=== PATIENT | female | born 1940 | race Caucasian/White ===

== ENCOUNTER → 2017-10-04 | Outpatient (CLI) | payer OTHER, MEDICARE ==
[~2017-10-04] MED LIST: CALC-20 PO; PRED1SUS3 OPL; PRLSR20 PO; RSTOPS OP; [UNRECOGNIZED DRUG - CODE] PO
--- NOTE | 2017-10-05 07:48 | MAMMOGRAPHY REPORT ---
BILATERAL DIGITAL SCREENING MAMMOGRAM TOMOSYNTHESIS WITH CAD: 10/04/2017 CLINICAL HISTORY: Routine screening. Patient has no complaints. TECHNIQUE: Breast tomosynthesis in addition to standard 2D mammography was performed. Current study was also evaluated with a Computer Aided Detection (CAD) system. COMPARISON: Comparison is made to exams dated: 10/01/2016 mammogram, 09/30/2015 mammogram, 09/28/2014 m ammogram, 09/11/2013 mammogram, 09/05/2012 mammogram, and 09/04/2011 mammogram - [facility]. BREAST COMPOSITION: There are scattered areas of fibroglandular density in both breasts. FINDINGS: There is a benign rim calcification in the left breast. No suspicious spiculated or irregu lar mass, architectural distortion or cluster of new, suspicious microcalcifications is seen. IMPRESSION: ACR BI-RADS CATEGORY 1: NEGATIVE There is no mammographic evidence of malignancy. A 1 year screening mammogram is recommended. The pa tient will receive written notification of the results. Approximately 10% of breast cancers are not detected with mammography. A negative mammographic report should not delay biopsy if a clinically suggestive mass is present. Debby Lara M.D. ay/:10/04/2017 20:54:31 Structurer: Magdalena ZAMORA(R)(M), [facility] letter sent: Normal 1/2 BI-RADS Code: ACR BI-RADS Category 1: Negative
== END | disposition home or self-care (01) ==
LOC: C.MAMM 13:56
PROVIDERS: ATTEND Family Medicine
DX: Z12.31 Encounter for screening mammogram for malignant neoplasm of breast (principal); Z85.3 Personal history of malignant neoplasm of breast

== ENCOUNTER 2018-02-06 08:03 | Emergency (ER) | payer OTHER, MEDICARE ==
[~2018-02-06] VITALS: Ht 160 cm; Wt 62.6 kg
[2018-02-06 08:05] VITALS: BP 129/73; PULSE 64; TEMP 36.3; O2SAT 98; Ht 160 cm; Wt 62.6 kg
--- NOTE | 2018-02-06 08:37 | EMERGENCY ROOM VISIT NOTE ---
History Report prepared by Rasheedaibe: Caryn Wheeler Under the Supervision of: Dr. Vishnu Howard D.O. First contact with patient: 08:26 Chief Complaint: BITE Stated Complaint: TICK BITE History of Present Illness The patient is a 77 year old female who presents to the Emergency Room with complaints of a tick bite that she noticed 2 days [employer]. She states last night, she checked the area on her left posterior shoulder more carefully, and showed her , who told her it looked like a tick bite with part of the tick still embedded. He used tweezers to attempt removal of the foreign body, but was unable to get the entire tick out. The patient denies any bulls-eye rash but notes the area is red. She has no other complaints at today's visit. Source of History: patient Onset: 2 days [employer] Position: shoulder (left) Quality: other (tick bite) Timing: constant Associated Symptoms: No rash Review of Systems See HPI for pertinent positives & negatives. A total of 10 systems reviewed and were otherwise negative. Past Medical & Surgical Medical Problems: (1) Diverticulosis Colon (W/O Ment Of Hemorrhage) (2) Esophageal Reflux (3) Hx Of Breast Malignancy (4) Liver Disorders Nec (5) Lump Or Mass In Breast (6) Reflux Esophagitis Family History Patient reports no known family medical history. Social History Smoking Status: Never Smoker Alcohol Use: occasionally Drug Use: none Marital Status: Housing Status: lives with significant other Occupation Status: retired Current/Historical Medications Scheduled Calcium Carbonate-Vitamin D (Calcium 600 + D), 1 TAB PO BID Cyclosporine (Restasis Eye Drops), 1 DROP OP BID Omeprazole (Prilosec), 20 MG PO BID Prednisolone Acetate 1% Oph (Pred Forte 1% Oph), 1 DROP OPL TID Scheduled PRN Eszopiclone (Lunesta), 2 MG PO HS PRN for Sleep Allergies Coded Allergies: Lactose Intolerance (Verified Allergy, Unknown, ., 04/17/15) Propoxyphene (Verified Adverse Reaction, Unknown, NAUSEA/VOMITING, 04/17/15 ) Physical Exam Vital Signs Date Time Temp Pulse Resp B/P (MAP) Pulse Ox O2 Delivery O2 Flow Rate FiO2 02/06/18 08:05 36.3 64 18 129/73 98 Room Air Physical Exam CONSTITUTIONAL/VITAL SIGNS: Reviewed / noted above. GENERAL: Non-toxic in appearance. INTEGUMENTARY: Warm, dry, and [place]. HEAD: Normocephalic. EYES: without scleral icterus or trauma. ENT/OROPHARYNX: clear and moist. LYMPHADENOPATHY/NECK: Is supple without lymphadenopathy or meningismus. RESPIRATORY: Lungs clear and equal. CARDIOVASCULAR: Regular rate and rhythm. GI/ABDOMEN: Soft and nontender. No organomegaly or pulsatile mass. No rebound or guarding. Normal bowel sounds. EXTREMITIES: Warm and well perfused. Tick bite to left posterior shoulder, mild erythema, small scab from home removal. BACK: No CVA tenderness. NEUROLOGICAL: Intact without focal deficits. PSYCHIATRIC: normal affect. MUSCULOSKELETAL: Normally developed with good muscle tone. Medical Decision & Procedures Medications Administered Medications (Trade) Dose Ordered Sig/Jay Route Start Time Stop Time Status Last Admin Dose Admin Doxycycline Hyclate (Vibramycin Cap) 200 mg ONE ONCE PO 02/06/18 08:45 02/06/18 08:46 DC 02/06/18 08:48 200 MG ED Course 0829: Previous medical records were reviewed. The patient was evaluated in room A2. A complete history and physical examination was performed. 0845: Vibramycin 200 mg PO. 0840: On reevaluation, the patient is feeling well and resting comfortably. I discussed the results and findings with the patient. She verbalized agreement of the treatment plan. She was discharged home. Medical Decision There is no signs of acute infection or erythema migrans. This is a 77-year-old female who presents to the ED with a chief complaint of a tick bite to the left posterior shoulder area. This was removed on Wednesday by her with tweezers. She was worried about Lyme disease. The patient has no other complaints. The area reveals some mild erythema surrounding the area of a scab where the tick was removed. No other findings. She was given doxycycline 200 mg p.o. She is felt to be stable for discharge. She was given instructions on Lyme disease. Medication Reconcilliation Current Medication List: was personally reviewed by me Blood Pressure Screening Patient's blood pressure: Normal blood pressure Blood pressure disposition: Did not require urgent referral Impression Primary Impression: Tick bite Scribe Attestation The scribe's documentation has been prepared under my direction and personally reviewed by me in its entirety. I confirm that the note above accurately reflects all work, treatment, procedures, and medical decision making performed by me. Departure Information Dispostion Home / Self-Care Referrals Екатерина Orta MD (PCP) Patient Instructions Disease Lyme Prevent, ED Lyme Disease, My [facility] Additional Instructions Watch the wound area for increasing redness. If this occurs contact your doctor or return for reevaluation. Read information provided on Lyme disease and Lyme disease prevention.
[2018-02-06] MEDS ORDERED: DOXYCYCLINE HYCLATE 100 MG CAP PO ONE (08:45)
== END 2018-02-06 08:52 | disposition home or self-care (01) ==
LOC: C.EDB 08:04 → C.EDA 08:52
DX: T14.8XXA Other injury of unspecified body region, initial encounter (principal); W57.XXXA Bitten or stung by nonvenomous insect and other nonvenomous arthropods, initial encounter; Z85.3 Personal history of malignant neoplasm of breast; K57.90 Diverticulosis of intestine, part unspecified, without perforation or abscess without bleeding; Z91.011 Allergy to milk products

== ENCOUNTER → 2018-02-07 | Outpatient (CLI) | payer OTHER, MEDICARE | END | disposition home or self-care (01) | LOC: C.MAMM 12:38 | PROVIDERS: ATTEND Family Medicine | DX: M85.851 Other specified disorders of bone density and structure, right thigh (principal); M85.852 Other specified disorders of bone density and structure, left thigh ==